=== PATIENT | female | born 1985 | race Caucasian/White ===

== ENCOUNTER 2020-05-25 10:55 | Emergency (ER) | payer SELFPAY ==
[2020-05-25] MEDS ORDERED: DIPHENHYDRAMINE HCL 50 MG/ML VIAL IV ONE (11:13)
[2020-05-25] MEDS ORDERED: METHYLPREDNISOLONE INJ 125 MG/2 ML SDV IV ONE (11:13)
[2020-05-25] MEDS ORDERED: NORMAL SALINE 1000 ML 1,000 ML IV ONE (11:13)
[2020-05-25] MEDS ORDERED: EPINEPHRINE INJ/PF 1 MG/1 ML AMPULE SUBCUT ONE (11:13)
--- NOTE | 2020-05-25 11:16 | ER Document Report ---
ED Medical Screen (RME) - General Chief Complaint: Allergic Reaction Stated Complaint: RASH,THROAT SWELLING Time Seen by Provider: 05/25/20 11:10 Mode of Arrival: Ambulatory Information source: Patient Notes: 35-year-old female presented to ED for shortness of breath difficulty swallowing difficulty breathing swollen eyes swollen face hives to the chest. She states the only change she knows of is she used a new ground epoxy resin in her craft and he woke up this morning like this. She does have a history of high blood pressure stroke at 21 and anxiety. She does smoke 1/2 pack a day drinks weekly does not use any illicit drugs but does smoke CBD oil. She is alert oriented respirations regular nonlabored at this time. She does have swelling to the face the mouth some shortness of breath swelling to the eyes swelling to the ears. I have greeted and performed a rapid initial assessment of this patient. A comprehensive ED assessment and evaluation of the patient, analysis of test results and completion of medical decision making process will be conducted by an additional ED providers. Physical Exam - Vital signs Vitals: Temp Pulse Resp BP Pulse Ox 98.4 F 97 16 163/127 H 100 05/25/20 11:11 05/25/20 11:11 05/25/20 11:11 05/25/20 11:11 05/25/20 11:11 Course - Vital Signs Vital signs: Temp Pulse Resp BP Pulse Ox 98.4 F 97 16 163/127 H 100 05/25/20 11:11 05/25/20 11:11 05/25/20 11:11 05/25/20 11:11 05/25/20 11:11
[2020-05-25 14:34] VITALS: BP 169/111
--- NOTE | 2020-05-25 15:14 | ER Document Report ---
ED Allergic Reaction - General Chief Complaint: Allergic Reaction Stated Complaint: RASH,THROAT SWELLING Time Seen by Provider: 05/25/20 11:10 Mode of Arrival: Ambulatory Information source: Patient Notes: 35-year-old woman presents to the emergency department with a allergic reaction. She has broke out in a rash and has itching in the upper torso bilateral arm and neck area. She also notes that she felt like it was a little uncomfortable to swallow. And so she decided to come to the emergency department. The symptoms began last night she had taken Benadryl with some mild relief. She is concerned that it has worsened. She thinks that she may be reacting to a topical application/lotion that she is using. She denies shortness of breath. Past Medical History - General Information source: Patient - Social History Smoking Status: Unknown if Ever Smoked Family History: Reviewed & Not Pertinent Patient has homicidal ideation: No Review of Systems - Review of Systems Notes: Constitutional: Negative for fever. HENT: Negative for sore throat. Eyes: Negative for visual changes. Cardiovascular: Negative for chest pain. Respiratory: Negative for shortness of breath. Gastrointestinal: Negative for abdominal pain, vomiting or diarrhea. Genitourinary: Negative for dysuria. Musculoskeletal: Negative for back pain. Skin: See HPI Neurological: Negative for headaches, weakness or numbness. 10 point ROS negative except as marked above and in HPI. Physical Exam - Vital signs Vitals: Temp Pulse Resp BP Pulse Ox 98.4 F 97 16 163/127 H 100 05/25/20 11:11 05/25/20 11:11 05/25/20 11:11 05/25/20 11:11 05/25/20 11:11 - Notes Notes: PHYSICAL EXAMINATION: Physical Exam: General: Well-nourished well-developed in no acute distress HEENT: NC/AT, pupils equal round and reactive to light, MM moist,nares clear, oropharynx clear, airway patent Neck: supple, no adenopathy, no masses. Good range of motion Lungs: clear, no wheezing, no rales no rhonchi CVS: Regular rate and rhythm no murmur gallop or rub Abdomen: Soft, active, nontender, no masses, no hepatosplenomegaly Ext: No edema, clubbing or cyanosis. Neuro: Alert and responsive, moving all 4 extremities on command, cranial nerves intact, no focal findings Skin: Maculopapular erythematous raised rash on the anterior chest and volar surfaces of the upper extremities and on the neck. PSYCH: Normal mood, normal affect. Course - Re-evaluation Re-evalutation: 05/25/20 15:12 Allergic reaction, patient is given medications via IV, Solu-Medrol, Pepcid, Benadryl. Patient's rash and itching are improving. When I went to see the patient for discharge she apparently had taken herself off the monitor and had eloped from the emergency department. Because she had an IV in place efforts are being made to contact the patient. 05/25/20 15:13 - Vital Signs Vital signs: Temp Pulse Resp BP Pulse Ox 98.4 F 97 15 169/111 H 98 05/25/20 11:11 05/25/20 11:11 05/25/20 14:01 05/25/20 14:00 05/25/20 14:01 - Laboratory Results Critical Laboratory Results Reviewed: No Critical Results - Radiology Results Critical Radiology Results Reviewed: No Critical Results Discharge - Discharge Clinical Impression: Urticarial rash Allergic reaction Qualifiers: Encounter type: initial encounter Qualified Code(s): T78.40XA - Allergy, unspecified, initial encounter Condition: Good Disposition: ELOPED
== END 2020-05-25 15:15 | disposition left against medical advice (07) ==
LOC: ER 10:55
DX: L50.0 Allergic urticaria (principal)
CPT/HCPCS: 99284; 96372; 96361; 96374; 96375; J1200; J0171; J2930; J7030